=== PATIENT | male | born 2000 | race African-American/Black ===

== ENCOUNTER 2022-03-08 17:13 | Emergency (ER) | payer MEDICAID, OTHER ==
[~2022-03-08] VITALS: Ht 185.4 cm; Wt 72.0 kg
[2022-03-08 18:16] VITALS: BP 114/78
== END 2022-03-08 18:25 | disposition home or self-care (01) ==
LOC: ER 17:13
DX: E86.0 Dehydration (principal); Z98.890 Other specified postprocedural states
CPT/HCPCS: 99283